=== PATIENT | female | born 1960 ===

== ENCOUNTER 2022-01-04 13:29 | Inpatient (IN) | payer SELFPAY ==
[~2022-01-04] VITALS: Ht 157.5 cm; Wt 78.5 kg
[2022-01-04 14:16] LABS: BASOPHILS ABSOLUTE AUTO 0.04 K/mm3 (0.00-0.23); BASOPHILS PERCENT AUTO 0 % (0-2); EOSINOPHILS ABSOLUTE AUTO 0.03 K/mm3 (0.00-0.68); EOSINOPHILS PERCENT AUTO 0 % (0-6); Hematocrit 37.1 % (33.0-51.0); IMMATURE GRAN ABSOLUTE AUTO 0.11 K/mm3 (0.00-0.10); IMMATURE GRAN PERCENT AUTO 1 % (0-1); LYMPHOCYTES ABSOLUTE AUTO 1.45 K/mm3 (0.84-5.20); LYMPHOCYTES PERCENT AUTO 13 % (21-46); MONOCYTES ABSOLUTE AUTO 1.23 K/mm3 (0.16-1.47); MONOCYTES PERCENT AUTO 11 % (4-13); Mean Corpuscular HGB 27.1 pg (26.0-34.0); Mean Corpuscular HGB Conc 32.3 g/dL (31.5-36.5); Mean Corpuscular Volume 84 fL (80-100); Mean Platelet Volume 9.2 fL (9.1-12.4); NEUTROPHILS ABSOLUTE AUTO 8.76 K/mm3 (1.96-9.15); NEUTROPHILS PERCENT AUTO 75 % (41-73); Platelet Count 228 K/mm3 (150-400); RDW Coefficient Variation 13.7 % (11.7-14.2); RDW Standard Deviation 42.3 fL (35.1-46.3); Red Blood Cell Count 4.42 M/mm3 (3.80-5.20); White Blood Cell Count 11.62 K/mm3 (4.00-11.30)
[2022-01-04 14:31] LABS: International Normalized Ratio 1.14; Prothrombin Time Results 11.9 Sec (9.7-11.5)
[2022-01-04 14:35] LABS: Albumin, Blood 2.9 g/dL (3.4-5.0); Albumin/Globulin Ratio 0.7 (0.8-1.8); Bilirubin, Total 0.4 mg/dL (0.1-1.0); Bun/Creatinine Ratio 16.1 (12.0-20.0); Calcium, Blood 9.2 mg/dL (8.5-10.1); Creatinine, Blood 0.5 mg/dL (0.40-1.00); Globulin, Blood 4.1 g/dL (2.2-4.0); Potassium, Blood 3.1 mmol/L (3.5-5.5)
[2022-01-04] MEDS ORDERED: OXYC5 PO (15:00)
[2022-01-04] MEDS ORDERED: Prozac40 MG PO (15:01)
[2022-01-04] MEDS ORDERED: BUPR150ER PO (15:01)
[2022-01-04] MEDS ORDERED: LOSA25 PO (15:01)
[2022-01-04] MEDS ORDERED: ACEB200 PO (15:01)
[2022-01-04] MEDS ORDERED: AMLO10 PO (15:01)
[2022-01-04] MEDS ORDERED: MULVITA PO (15:02)
[2022-01-04] MEDS ORDERED: HYALURONIC ACID PO (15:03)
[2022-01-04] MEDS ORDERED: GREEN TEA EXT1000 GM PO (15:03)
[2022-01-04] MEDS ORDERED: CALCIUM CARBON650 MG (15:04)
[2022-01-04] MEDS ORDERED: OMEGA-3 FISH O1 EAC5 PO (15:05)
[2022-01-04] MEDS ORDERED: ALLEGRA ALLERG180 MG PO (15:06)
--- NOTE | 2022-01-04 16:30 | NUR ---
DRESSING CHANGE DONE TO LEFT LOWER CHEST/PERICARDIAL DRAIN SITE. DRESSING WAS SATURATED WITH SERO/SANG DRAINAGE. NEW 4X4 AND OPSITE PLACED. PT STILL DENIES CP OR SOB. NO NOTED DISTRESS.
--- NOTE | 2022-01-04 17:15 | NUR ---
RECEIVED PT FROM ER VIA [facility]. PT ABLE TO STAND AND TRANSFER [place] [facility] [place] [facility] [email or web address]. PT HAS RECENT DX OF STAGE 4 LUNG CANCER. SHE STATES THAT SHE WISHES TO BE DNR. PALLIATIVE CARE CONSULT PLACED. PT IS A&OX4. DENIES PAIN OR CHEST DISCOMFORT. ECG SHOWS SR WITH RATE 80-90'S. SBP 140S. NO NOTED EDEMA. DP/PT PULSES 2+ LUNGS DIMINISHED IN R>L. SATS >90% ON 3 LITERS NASAL CANULA. PT DENIES GI DISTRESS, BUT REPORTS THAT SHE IS ONLY ABLE TO EAT SMALL PORTIONS OF FOOD. SKIN IS C/D/I. NO NOTED SKIN BREAKDOWN. PT SPOUSE AT BEDSIDE. BOTH PT AND SPOUSE ORIENTED TO PLAN OF CARE AND PCU PROCEDURE. CALL LIGHT WITHIN REACH.
--- NOTE | 2022-01-04 18:25 | NUR ---
HEPARIN BOLUS AND DRIP INITIATED-SEE EMAR. PT REPORTS "CRAMPING SENSATION" TO LEFT LOWER EXTREMITY. LEFT LOWER EXTREMITY NOTED TO BE SLIGHTLY SWOLLEN AND RED.
--- NOTE | 2022-01-04 18:47 | NUR ---
LEFT CHEST DRESSING REMAINS C/D/I. PT CONTINUES TO DENY CHEST PAIN OR SOB.
--- NOTE | 2022-01-05 05:33 | NUR ---
SHIFT SUMMARY ASSUMED CARE OF PT AT 1900. PT IS A/OX4. HEART SOUNDS REGULAR. LUNG SOUNDS DIMINISHED. PT HAS A COUGH, WHICH SHE TAKES OXYCODONE FOR, PT STATES ITS BEEN THE ONLY THING THAT HAS HELPED HER SO FAR. PT HAD DIFFICULTLY SLEEPING T/O THE NIGHT DUE TO ANXIETY ABOUT HER SCANS AND WHAT THE NEXT DAY BRINGS. PT REMAINED ON 3L NC.
[2022-01-05 06:42] LABS: BASOPHILS ABSOLUTE AUTO 0.08 K/mm3 (0.00-0.23); BASOPHILS PERCENT AUTO 1 % (0-2); EOSINOPHILS ABSOLUTE AUTO 0.09 K/mm3 (0.00-0.68); EOSINOPHILS PERCENT AUTO 1 % (0-6); Hematocrit 33.7 % (33.0-51.0); Hemoglobin 10.7 g/dL (11.5-16.0); IMMATURE GRAN ABSOLUTE AUTO 0.07 K/mm3 (0.00-0.10); IMMATURE GRAN PERCENT AUTO 1 % (0-1); LYMPHOCYTES ABSOLUTE AUTO 1.46 K/mm3 (0.84-5.20); LYMPHOCYTES PERCENT AUTO 16 % (21-46); MONOCYTES ABSOLUTE AUTO 1.08 K/mm3 (0.16-1.47); MONOCYTES PERCENT AUTO 12 % (4-13); Mean Corpuscular HGB 27.4 pg (26.0-34.0); Mean Corpuscular HGB Conc 31.8 g/dL (31.5-36.5); Mean Corpuscular Volume 86 fL (80-100); Mean Platelet Volume 9.6 fL (9.1-12.4); NEUTROPHILS ABSOLUTE AUTO 6.23 K/mm3 (1.96-9.15); NEUTROPHILS PERCENT AUTO 69 % (41-73); Platelet Count 213 K/mm3 (150-400); RDW Standard Deviation 43.7 fL (35.1-46.3); White Blood Cell Count 9.01 K/mm3 (4.00-11.30)
[2022-01-05 06:59] LABS: Albumin, Blood 2.3 g/dL (3.4-5.0); Albumin/Globulin Ratio 0.7 (0.8-1.8); Bilirubin, Total 0.3 mg/dL (0.1-1.0); Bun/Creatinine Ratio 15.2 (12.0-20.0); Calcium, Blood 8.3 mg/dL (8.5-10.1); Creatinine, Blood 0.53 mg/dL (0.40-1.00); Globulin, Blood 3.4 g/dL (2.2-4.0); Potassium, Blood 3.7 mmol/L (3.5-5.5); Total Protein, Blood 5.7 g/dL (6.4-8.2)
--- NOTE | 2022-01-05 08:00 | NUR ---
PT A&O X 4. PT APPEARS WITHDRAWN, BUT COOPERATIVE WITH CARE. ECG SHOWS SR WITH RATE 60'S. HEART SOUNDS DISTANT. SBP 110'S. DP/PT PULSES 2+. RLE WITH 2+ NON PITTING EDEMA AND MILD REDNESS NOTED. LUNGS DIMINISHED THROUGH OUT. SOB WITH EXERTION. FREQUENT, HACKING, NONPRODUCTIVE COUGH NOTED. PT REPORTS CHEST TIGHTNESS WITH THE COUGHING-MED WITH OXYCODONE-SEE EMAR. HEPARIN DRIP CONTINUES @ 18 UNITS/KG/HR. NEXT ANTI XA @ 1200. UPPER 90'S ON 3 LITERS NASAL CANULA. PT DENIES GI DISTRESS. UP TO BSC PRN WITH STANDBY ASSIST. PT AGREES TO CALL FOR ASSIT PRN. CALL LIGHT WITHIN REACH.
--- NOTE | 2022-01-05 10:05 | NUR ---
DR. CENTENO IN TO SEE PT-UPDATE GIVEN.
--- NOTE | 2022-01-05 12:00 | NUR ---
NO ACUTE CHANGES. PT RESTS QUIETLY WHEN NOT DISTURBED. HEPARIN DRIP CONTINUES @ 18 UNITS/KG/HR. PTT DRAWN. PT MED WITH OXYCODONE FOR BOTH CHEST TIGHTNESS AND COUGH-SEE EMAR.
--- NOTE | 2022-01-05 13:00 | NUR ---
ANTI-Xa within therapeutic range per pharmacy. Continue Heparin drip @ current rate. re-check anti-Xa in am.
--- NOTE | 2022-01-05 16:00 | NUR ---
PT DENIES COMPLAINTS. VS REMAIN WDL. SATS>90% ON 3 LITERS NASAL CANULA. EXERTIONAL DYSPNEA CONTINUES. HEPARIN DRIP CONTINUES @ 18 UNIT/KG/HR-RE-CHECK ANTI-Xa IN AM. PT STANDBY ASSIST TO BSC. MAINTAINS SATS>90% WITH ACTIVITY/ EXERTION. CALL LIGHT WITHIN REACH.
--- NOTE | 2022-01-06 05:43 | NUR ---
SHIFT SUMMARY ASSUMED CARE OF PT 0. PT IS A/OX4. HEART SOUNDS REGULAR. BISI SOUNDS DIMINISHED. PT USES OXYCODONE FOR COUGH AND CHEST TIGHTNESS. PT WAS A SBA TO BS. NO ACUTE CHANGES REMAINEDO N 3L NC T/O THE NIGHT.
[2022-01-06 09:05] LABS: Hematocrit 35.4 % (33.0-51.0); Hemoglobin 11.1 g/dL (11.5-16.0); Mean Corpuscular HGB 26.9 pg (26.0-34.0); Mean Corpuscular HGB Conc 31.4 g/dL (31.5-36.5); Mean Corpuscular Volume 86 fL (80-100); Mean Platelet Volume 9.3 fL (9.1-12.4); Platelet Count 270 K/mm3 (150-400); RDW Coefficient Variation 13.7 % (11.7-14.2); RDW Standard Deviation 42.9 fL (35.1-46.3); Red Blood Cell Count 4.13 M/mm3 (3.80-5.20); White Blood Cell Count 9.32 K/mm3 (4.00-11.30)
[2022-01-06 09:23] LABS: Albumin, Blood 2.4 g/dL (3.4-5.0); Anion Gap 6 mmol/L (6-16); Blood Urea Nitrogen 8 mg/dL (8-24); Bun/Creatinine Ratio 16.1 (12.0-20.0); CO2, Blood 28 mmol/L (21-32); Calcium, Blood 8.6 mg/dL (8.5-10.1); Chloride, Blood 103 mmol/L (98-108); Glomerular Filtration Rate 107 (60-); Glucose, Blood 139 mg/dL (70-99); Phosphorus, Blood 2.9 mg/dL (2.5-4.9); Potassium, Blood 3.3 mmol/L (3.5-5.5); Sodium, Blood 137 mmol/L (136-145)
--- NOTE | 2022-01-06 09:46 | NUR ---
A&OX4, COOPERATIVE WITH CARE. CURRENTLY SITTING UP IN RECLINER WATCHING TV. VSS. ON 3L NC SATING 95%. DENIES ANY SOB OR PAIN. LUNG SOUNDS DIMINISHED. OCCASIONAL COUGH. HEPARIN DRIP RUNNING. SBA TO BSC AND CHAIR. WILL CONTINUE TO MONITOR.
--- NOTE | 2022-01-06 15:50 | NUR ---
Met with pt at bedside yesterday afternoon. She stated she feels "very overwhelmed" with the new diagnoses of lung cancer. She tells me it took a "couple of months" from the time she began to feel bad until she was diagnosed. She is currently using 02 via n/c. She denies pain, but does report SOB and general fatigue. She verbalizes awareness of the multiple blood clots in her lungs and R leg. She also reports she's recently been made aware of 3 new spots on her brain. She does plan to continue into therapy when she has completed the heparin therapy. Palliative will continue with supportive visits.
--- NOTE | 2022-01-06 17:20 | NUR ---
HEPARIN DRIP STOPPED AND SWITCHED OVER TO PO XARELTO
--- NOTE | 2022-01-06 17:41 | NUR ---
SHIFT SUMMARY A&OX4. STAGE IV LUNG CX WITH 6MM MASS AND METS TO BRAIN. PATIENT FLAT AFFTECT. SBA TO BSC. ON 3L VIA NC SATING 95%. DRY COUGH PRESENT. TESSALON PERLES GIVEN FOR COUGH BUT NOT EFFECTIVE PER PATIENT. PATIENT REQUESTS OXYCODONE FOR CHRONIC COUGH. K+ 3.3 THIS AM, PO K+ GIVEN. IV HEPARIN STOPPED THIS EVENING AND STARTED ON PO XARELTO. VSS. WILL CONTINUE TO MONITOR.
--- NOTE | 2022-01-06 20:46 | NUR ---
REPORT RECEIVED ON THIS PATIENT AT THE BEDSIDE. PT APPEARS COMFORTABLE IN BED ON TELE AND NASAL CANNULA. PT HAS COUGH R/T NEW CA DIAGNOSIS. PT IS USING PRN TESSALON PERLES AND OXYCODONE TO HELP SUPRESS THE COUGH AND IMPROVE ASSOCIATED PAIN. PT IS ALERT AND ORIENTED AND IS ABLE TO INDEPENDENTLY TRANSFER FROM BED TO THE BEDSIDE COMMODE. THIS WAS VISUALIZED. PT APPEARS SHORT OF BREATH BUT DECLINES ANY FURTHER OXYGEN STATING, "I DONT WANT TO GET USED TO HAVIG ANY MORE." PT IS NOTED TO BE A DNR. EXPRESSED MY AVAILABILITY TO THIS PATIENT FOR ANY EMOTIONAL OR PHYSICAL NEEDS. VITALS ARE STABLE AT THIS TIME. WILL CONTINUE TO MONITOR.
--- NOTE | 2022-01-07 | NUR ---
FOLLOW UP ASSESSMENT PT PHYSICAL ASSESSMENT REMAINS UNCHANGED. PT ASLEEP IN BED WEARING NASAL CANNULA AND APPEARS TO BE RESTING WELL. PT HAS HAD A HACKING COUGH ALL EVENING RELATED TO MASS FOUND IN CHEST. THIS SEEMS TO BE WORKING WELL FOR THE PATIENT AT THIS TIME. ATTEMPTED THE USE OF THE TESSALON PERLES, BUT THESE HAVEN'T BEEN EFFECTIVE PER THE PATIENT AND DIDNT SEEM TO WORK WHEN THIS NURSE ADMINISTERED THEM. VITALS HAVE BEEN STABLE THROUGHOUT THE NIGHT. WILL CONTINUE TO MONITOR.
[2022-01-07 03:58] LABS: Hematocrit 32.2 % (33.0-51.0); Hemoglobin 10.1 g/dL (11.5-16.0); Mean Corpuscular HGB 26.9 pg (26.0-34.0); Mean Corpuscular HGB Conc 31.4 g/dL (31.5-36.5); Mean Corpuscular Volume 86 fL (80-100); Mean Platelet Volume 9.3 fL (9.1-12.4); Platelet Count 253 K/mm3 (150-400); RDW Coefficient Variation 13.7 % (11.7-14.2); RDW Standard Deviation 42.7 fL (35.1-46.3); Red Blood Cell Count 3.76 M/mm3 (3.80-5.20); White Blood Cell Count 8.82 K/mm3 (4.00-11.30)
[2022-01-07 04:27] LABS: Albumin, Blood 2.3 g/dL (3.4-5.0); Anion Gap 7 mmol/L (6-16); Blood Urea Nitrogen 9 mg/dL (8-24); Bun/Creatinine Ratio 17.8 (12.0-20.0); CO2, Blood 28 mmol/L (21-32); Calcium, Blood 8.4 mg/dL (8.5-10.1); Chloride, Blood 104 mmol/L (98-108); Creatinine, Blood 0.51 mg/dL (0.40-1.00); Glomerular Filtration Rate 106 (60-); Glucose, Blood 111 mg/dL (70-99); Phosphorus, Blood 3.3 mg/dL (2.5-4.9); Potassium, Blood 3.5 mmol/L (3.5-5.5); Sodium, Blood 139 mmol/L (136-145)
--- NOTE | 2022-01-07 05:53 | NUR ---
SHIFT SUMMARY PT HAS RESTED COMFORTABLY IN BED OVERNIGHT. NO CHANGE IN PATIENT'S PHYSICAL ASSESSMENT NOTED THROUGHOUT THE NIGHT. PT STILL HAVING HACKING DRY COUGH WITH ASSOSCIATED LUNG CA. PRN TESSALON PERLES AND OXYCODONE ARE BEING USED TO TREAT THIS SYMPTOM FOR COMFORT. PT HAS BEEN AFEBRIE AND VITALS HAVE REMAINED STABLE. PT HAS BEEN TRANSFERRING TO BSC INDEPENDENTLY WITHOUT ISSUE THROUGHOUT THE NIGHT. PT VERBALIZED SOME DIFFICULTY IN MENTALLY COMING TO GRASP WITH HER PROGNOSIS. OFFERED THE PATIENT COMFORT AND MY CONDOLENCES. OFFERED PASTORAL CARE BUT PT DECINES AT THIS TIME. WILL CONTINUE TO MONITOR.
[2022-01-07] MEDS ORDERED: AMOCLA875 PO (11:49)
[2022-01-07] MEDS ORDERED: PROBIOTIC1 EA13 PO (11:49)
--- NOTE | 2022-01-07 14:49 | NUR ---
DISCHARGE SUMMARY PT A&OX4, VSS/3LNC(PORTABLE TANK FOR DC-REP HAVING TANK AT HOME), VOIDING, ANA MARIA PO, AMB INDEPENDENTLY IN ROOM, UP TO CHAIR T/O SHIFT, SHOWERED TODAY, 2 IVS DC'D. DC INSTRUC PROVIDED. PT REP UNDERSTANDING THOSE INSTRUCTIONS INCLUDING XARELTO 1700 TODAY-DIRECTIONS PER SAMPLE BOX INSTRUCT TO TAKE 15 MG BID X 21 DAYS, THEN 20 MG DAILY; CODEINE/GUAIF SYRUP AT [facility] IN [place] ALONG WITH AUGMENTIN SCRIPT; HAS OXY TABS FROM ONCOLOGY; ALREADY TAKES STOOL SOFTENER AND PROBIOTIC FROM PCP-DECLINED NEW SCRIPTS. PT RECEIVED ROCEPHIN AND AZITH DOSES PRIOR TO DC/KNOWS TO START AUGMENTIN TOMORROW, AND TO FU WITH PCP AND ONCOLOGY 1-2 WKS. LEFT FLOOR VIA WC WITH ATHLETIC TEAM PHYSICIAN, TO GO HOME WITH , WITH ALL PERSONAL POSSESSIONS INCLUDING DC PACKET.
== END 2022-01-07 14:35 | disposition home or self-care (01) | DRG 175 ==
LOC: ER 13:29 → PCU 16:23
PROVIDERS: Internal Medicine; Student in an Organized Health Care Education/Training Program; ADMIT Internal Medicine
DX: I26.99 Other pulmonary embolism without acute cor pulmonale (principal); J18.9 Pneumonia, unspecified organism; J96.21 Acute and chronic respiratory failure with hypoxia; C79.31 Secondary malignant neoplasm of brain; C34.92 Malignant neoplasm of unspecified part of left bronchus or lung; I82.441 Acute embolism and thrombosis of right tibial vein; Z66 Do not resuscitate; I82.461 Acute embolism and thrombosis of right calf muscular vein; I10 Essential (primary) hypertension; F32.A Depression, unspecified; E87.6 Hypokalemia; Z79.899 Other long term (current) drug therapy
CPT/HCPCS: 36415; 71260; 80053; 80069; 83880; 84145; 84484; 85025; 85027; 85520; 85610; 85730; 93005; 93010; 96374; 96375; 99285-25; A9270; J0456; J0696; J1644; J3480; J7050; Q9967